=== PATIENT | female | born 1960 | race Caucasian/White ===

== ENCOUNTER 2019-08-02 17:35 | Emergency (ER) | payer MEDICAID ==
[~2019-08-02] VITALS: Ht 165.1 cm; Wt 72.0 kg
--- NOTE | 2019-08-02 18:29 | NUR ---
[employer] SPEAKING WITH SON AND PATIENT
--- NOTE | 2019-08-02 19:03 | NUR ---
REPORT TO SELENA WICK
[2019-08-02 19:07] LABS: BASOPHILS # (AUTO) 0.02 x10^3/uL (0-0.1); BASOPHILS % (AUTO) 0 % (0-1); EOSINOPHILS # (AUTO) 0.02 x10^3/uL (0-0.4); EOSINOPHILS % (AUTO) 1 % (1-7); LYMPHOCYTES # (AUTO) 1.18 x10^3/uL (1-3.4); LYMPHOCYTES % (AUTO) 32 % (22-44); MD NO; MEAN CORPUSCULAR HEMOGLOBIN 28.3 pg (27.0-34.8); MEAN CORPUSCULAR HGB CONC 32.8 g/dL (32.4-35.8); MEAN CORPUSCULAR VOLUME 86.1 fL (80-100); MEAN PLATELET VOLUME 8.7 fL (7.4-10.4); MONOCYTES # (AUTO) 0.37 x10^3/uL (0.2-0.8); MONOCYTES % (AUTO) 10 % (2-9); NEUTROPHILS # (AUTO) 2.11 x10^3/uL (1.8-6.8); NEUTROPHILS % (AUTO) 57 % (42-75); PLATELET COUNT 199 x10^3/uL (130-400); RED BLOOD COUNT 4.51 x10^6/uL (3.82-5.3); RED CELL DISTRIBUTION WIDTH 16.6 % (9.6-15.2)
--- NOTE | 2019-08-02 19:09 | NUR ---
RN to bedside, patient and family member asking for unusual things. Son keeps reporting odd behaviors but cannot elucidate any specifics. Patient asking for multiple sets of gloves for cleaning and doesn't acknowledge RN after attempts to explain hospitals cleaning process.
--- NOTE | 2019-08-02 19:17 | NUR ---
Patient informed of need for urinalysis. Patient still fixating on need for multiple commodes; multiple sets of gloves. Patient does not acknowledge verbally RN, but is cooperative.
[2019-08-02 19:21] LABS: ALANINE AMINOTRANSFERASE 67 U/L (12-78); ALBUMIN 3.6 g/dL (3.4-5.0); ANION GAP 9 mmol/L (5-15); CALCIUM 9.2 mg/dL (8.5-10.1); CHLORIDE 108 mmol/L (98-107); CREATININE 0.91 mg/dL (0.55-1.02)
[2019-08-02 19:23] LABS: ALKALINE PHOSPHATASE 83 U/L (45-117); BILIRUBIN,TOTAL 0.8 mg/dL (0.2-1.0); TOTAL PROTEIN 8.3 g/dL (6.4-8.2)
[2019-08-02 19:25] LABS: SALICYLATE LEVEL < 1.7 mg/dL (2.8-20.0)
[2019-08-02 19:45] LABS: MICROSCOPIC INDICATED
[2019-08-02 19:46] LABS: CULTURE INDICATED? YES
[2019-08-02 19:55] LABS: AMPHETAMINE SCREEN, URINE Negative (Negative); BARBITURATE SCREEN, URINE Negative (Negative); BENZODIAZEPINE SCREEN, URINE Negative (Negative); CANNABINOID SCREEN, URINE Positive (Negative); COCAINE SCREEN, URINE Negative (Negative); METHADONE SCREEN, URINE Negative (Negative); OPIATE SCREEN, URINE Negative (Negative)
--- NOTE | 2019-08-02 20:21 | NUR ---
Son in hallway on phone, called RN x2. Patient impulsive and asking for multiple gloves, multiple commodes again. Patient is oriented only to self, at least knows is in the hospital, but thinks is [facility], doesn't answer date question, instead answering with her date of , and doesn't know why she is here despite multiple attempts to reeducate by both RN and son at bedside.
--- NOTE | 2019-08-02 20:41 | NUR ---
Patient continues to walk to the door, asking for multiple rolls of toilet paper. Patient does not seem to be retaining instructions from RN Addendum: 08/02/19 at 2046 by NITHYA Patient continues to refuse vital signs. Vitals have been stable to this point.
--- NOTE | 2019-08-02 21:28 | NUR ---
Provider and social work to bedside. Confirmed with caregiver that current psychiatric issues have been a chronic issue and that the patient has been cleared at another hospital medically. Patient does not acknowledge conversation occuring about her, still asking for objects not typically provided by ER staff (toilet paper rolls, multiple commodes, "medical kits") and caregiver getting more and more worked up using faster rate of speech and increasing volume with attempts to explain that patients can't be hospitalized just on request without medical reasons.
[2019-08-02 21:38] VITALS: BP 134/80
== END 2019-08-02 22:05 | disposition home or self-care (01) ==
LOC: ED 21:45
DX: R41.82 Altered mental status, unspecified (principal); I10 Essential (primary) hypertension; E11.9 Type 2 diabetes mellitus without complications; E78.00 Pure hypercholesterolemia, unspecified; F31.9 Bipolar disorder, unspecified; F20.9 Schizophrenia, unspecified; Z87.891 Personal history of nicotine dependence
CPT/HCPCS: 36415; 80053; 80307; 81001; 82140; 85025; 87077; 87086; 87186; 99284